=== PATIENT | male | born 1965 | race Caucasian/White ===

== ENCOUNTER 2017-03-10 10:31 | Day surgery (SDC) | payer BC, OTHER ==
--- NOTE | 2017-03-10 13:22 | Operative Note ---
Colonoscopy ([facility]) Procedure date: 03/10/17 Date of : 67 Procedure:Colonoscopy Colonoscopy with cold biopsies Indications: Mr. Allen is a 51-year-old gentleman who is here for diagnostic colonoscopy. He does describe postprandial liquid diarrhea after his meals and he states that he has not had solid bowel movement in quite some time. This has been going on for several months. He has lost 40 pounds (from 230 pounds down to 190 pounds) over 2 months time. He reports no rectal bleeding, abdominal pain or family history of colon cancer. He did have a colonoscopy in April 2008 at which time he had hemorrhoid band ligation. Performing Provider: Haley Pavon MD Referrring Provider: Kisha Ignacio M.D. Sedation: Fentanyl 100 mg IV/Versed 7 mg IV Procedure: Prior to the procedure, a history and physical exam was performed, and patient medications and allergies were reviewed. The risks and benefits of the procedure and the sedation options and risks were discussed with the patient. All questions were answered and informed consent was obtained. Patient identification and proposed procedure were verified by the physician and the nurse. The patient was placed in a left lateral decubitus position. Throughout the procedure, the patient's blood pressure, pulse, and oxygen saturations were monitored continuously. Findings: On digital rectal examination there was normal rectal tone. There were no external hemorrhoids. The prostate was mildly firm but smooth and symmetric without nodules. The colonoscope was introduced through the anal canal to the rectum and advanced to the cecum. The ileocecal valve and appendiceal orifice were identified. The scope was advanced a short distance into the ileum which appeared grossly normal. The scope was then withdrawn into the colon. Random colon biopsies were taken from the RIGHT colon to rule out microscopic ( lymphocytic or collagenous) colitis. There were 2 diminutive colon polyps identified in the transverse 1 and descending 1. Both polyps were 4 mm in size and were both removed via cold biopsy/cold biopsy forceps. The remaining cecum, ascending, transverse, descending, sigmoid and rectum were grossly normal. There were no other mucosal abnormalities identified. Upon retroflexion within the rectum there were grade 1 internal hemorrhoids. Impressions: 1. Diminutive colonic polyps 2 2. Grade 1 internal hemorrhoids Recommendations: I will follow up the biopsies to exclude microscopic colitis and treat accordingly. If the biopsies are negative, I would recommend CT scan of the chest abdomen and pelvis based upon his marked weight loss and diarrhea. I would also consider PCR stool testing. I will follow up polyp histology and recommend surveillance based on the polyp histologic findings. Complications: None EBL (ml): 0 at 1327
[2017-03-10 14:22] VITALS: BP 109/70
== END 2017-03-10 14:25 | disposition home or self-care (01) ==
LOC: SDC 10:31
PROVIDERS: Internal Medicine Gastroenterology
PROC: 0DBL8ZX Excision of Transverse Colon, Via Natural or Artificial Opening Endoscopic, Diagnostic (ICD-10-PCS; 2017-03-10)
PROC: 0DBM8ZX Excision of Descending Colon, Via Natural or Artificial Opening Endoscopic, Diagnostic (ICD-10-PCS; 2017-03-10)
PROC: 0DBK8ZX Excision of Ascending Colon, Via Natural or Artificial Opening Endoscopic, Diagnostic (ICD-10-PCS; principal; 2017-03-10 12:00)
DX: K52.9 Noninfective gastroenteritis and colitis, unspecified (principal); R63.4 Abnormal weight loss